=== PATIENT | female | born 1990 | race Caucasian/White ===

== ENCOUNTER 2017-06-07 06:48 | Inpatient (IN) | payer OTHER, SELFPAY | END 2017-06-09 15:30 | disposition home or self-care (01) | DRG 743 | PROVIDERS: Admitting Provider Obstetrics & Gynecology; Family Provider Physical Medicine & Rehabilitation; PCP Physical Medicine & Rehabilitation; Visit Provider Obstetrics & Gynecology | DX: N93.9 Abnormal uterine and vaginal bleeding, unspecified (principal); N73.6 Female pelvic peritoneal adhesions (postinfective); N83.202 Unspecified ovarian cyst, left side; R10.2 Pelvic and perineal pain; Z30.432 Encounter for removal of intrauterine contraceptive device; R33.9 Retention of urine, unspecified | CPT/HCPCS: 36415; 81001; 85025; 88309; 99058; J0131; J0330; J0690; J1100; J1200; J1885; J2250; J2270; J2405; J2704; J2765; J3010; J7121; J8501 ==

== ENCOUNTER 2018-09-13 18:24 | Emergency (ER) | payer OTHER, SELFPAY ==
[2018-09-13 18:34] VITALS: BP 112/64; PULSE 72; RESP 15; TEMP 36.5; O2SAT 97; BMI 21.5
--- NOTE | 2018-09-13 18:41 | ED.ABDPAIN ---
HPI - Abdominal Pain General Chief Complaint: Abdominal Pain Stated Complaint: MIDDLE RIGHT SIDE ABD PAIN NAUSEA Time Seen by Provider: 09/13/18 18:26 Source: patient Mode of arrival: ambulatory Limitations: no limitations History of Present Illness HPI narrative: 28-year-old female here for evaluation of right-sided abdominal pain. Patient states that has been going on for the past several weeks if not month. Was seen at her primary doctor today. Had ?labs ?and a right upper quadrant ultrasound performed. Patient states she was told everything was unremarkable. She comes to the emergency department this evening because she states she now has nausea. States the pain is on her right side. No urinary symptoms. No change in bowel habits. No vaginal bleeding. She has had a hysterectomy in the past and a right-sided ovary removal. States the pain is worse with eating and drinking and then improves to the point where she does not have any symptoms. She is not currently on any reflux medications. Related Data Home Medications Medication Instructions Recorded Confirmed estradiol [Climara] 1 patch TOPICAL QWEEK #0 05/31/17 multivitamin [Multiple Vitamins] 1 tab PO QDAY #0 06/07/17 Previous Rx's Medication Instructions Recorded esomeprazole magnesium [Nexium 20 mg PO DAILY #30 cap 09/13/18 24HR] ondansetron 4 mg PO Q6H PRN #14 tab 09/13/18 Allergies Allergy/AdvReac Type Severity Reaction Status Date / Time No Known Drug Allergies Allergy Verified 09/13/18 18:34 Review of Systems Constitutional Denies fever(s) Cardiovascular Denies chest pain and Denies dyspnea Respiratory Denies dyspnea Gastrointestinal Gastrointestinal: Reports abdominal pain, Denies change in stool character, Reports nausea and Reports vomiting Genitourinary Denies dysuria and Denies vaginal discharge Musculoskeletal Denies myalgias and Denies arthralgias Integumentary/Breasts Denies rash Neurologic Denies behavioral changes Psychiatric Denies behavioral changes Hematologic/Lymphatic Denies easy bleeding and Denies easy bruising [facility] Medical History History of hysterectomy (Acute) Patient denies medical problems (Acute) Social History Smoking Status: Unknown if ever smoked Social History Smoking Status: Unknown if ever smoked Exam Initial Vital Signs Initial Vital Signs: Vital Signs Temperature 97.7 F 09/13/18 18:34 Pulse Rate 72 09/13/18 18:34 Respiratory Rate 15 09/13/18 18:34 Blood Pressure 112/64 09/13/18 18:34 Pulse Oximetry 97 09/13/18 18:34 Const General: cooperative, comfortable, well developed, well groomed and No acute distress Orientation: alert, awake and oriented x3 Resp Effort & Inspection: normal respiratory effort Auscultation: clear to auscultation bilaterally Cardio Rate: regular rate Rhythm: regular rhythm Pulses: radial pulses present GI Inspection: non-distended Palpation: soft, No firm and tender (Right-sided abdominal tenderness) Back/Spine/Pelvis Back: No CVA tenderness Skin Lesions: no lesions Rashes: no rashes Neuro General: alert and awake Cognition: normal cognition Speech: speech normal Extrem General: normal to inspection and capillary refill normal Psych Appearance: grossly normal and well kempt Course Orders Ordered: ED Orders 09/13/18 18:49 CT abdomen pelvis w con Stat 09/13/18 19:11 Complete Blood Count AUTO DIFF Stat Comprehensive Metabolic Panel Stat Lipase Stat 09/13/18 19:30 Urine Microscopic Stat Discontinued Medications Sodium Chloride (Normal Saline 0.9%) 1,000 mls @ 1,000 mls/hr IV BOLUS ONE Stop: 09/13/18 19:47 Last Admin: 09/13/18 19:28 Dose: 1,000 mls/hr Morphine Sulfate (Morphine) 4 mg IV NOW ONE Stop: 09/13/18 18:49 Last Admin: 09/13/18 19:28 Dose: 4 mg Ondansetron HCl (Zofran) 4 mg IV NOW ONE Stop: 09/13/18 18:49 Last Admin: 09/13/18 19:28 Dose: 4 mg Ondansetron HCl (Zofran) 4 mg IV NOW ONE Stop: 09/13/18 20:01 Last Admin: 09/13/18 20:04 Dose: 4 mg Ondansetron HCl (Zofran Odt Prepack) 1 bottle MISC SEEINSTR ONE Stop: 09/13/18 20:41 Vital Signs - 8 hr 09/13/18 18:34 09/13/18 19:42 09/13/18 20:30 Temperature 97.7 F Pulse Rate 72 73 62 Respiratory Rate 15 15 15 Blood Pressure 112/64 Blood Pressure [Left Arm] 107/66 106/63 Pulse Oximetry 97 98 99 MDM - Abdominal Pain Lab Data Attestation: I reviewed the patient's lab results. Result diagrams: 09/13/18 19:11 09/13/18 19:11 Lab Results 09/13/18 09/13/18 09/13/18 Range/Units 19:11 19:11 19:30 WBC 8.4 (4.5-11.0) X10^3/uL RBC 4.24 (4.0-5.2) X10^6/uL Hgb 12.5 (12.0-16.0) g/dL Hct 37.7 (36-46) % MCV 89.0 (80-100) fL MCH 29.6 (26-34) PG MCHC 33.3 (30-36) % RDW 13.0 (11.6-14.8) % Plt Count 310 (150-400) X10^3/uL Neut % (Auto) 52.9 (50-75) % Lymph % (Auto) 32.9 (25-40) % [place] % (Auto) 7.9 (3-14) % Eos % (Auto) 5.2 H (2-4) % Baso % (Auto) 1.1 (0-2) % Neut # (Auto) 4400 (3809-4790) /uL Lymph # (Auto) 2800 (8263-3843) /uL [place] # (Auto) 700 (0-900) /uL Eos # (Auto) 400 (0-450) /uL Baso # (Auto) 100 (0-100) /uL Sodium 140 (137-145) mmol/L Potassium 3.5 (3.4-5.1) mmol/L Chloride 102 (98-107) mmol/L Carbon Dioxide 32 (22-32) mmol/L BUN 19 H (7-17) mg/dL Creatinine 0.70 (0.52-1.04) mg/dL Estimated GFR > 60.0 (>60) mL/min BUN/Creatinine Ratio 27.1 H (6-22) Glucose 73 (70-100) mg/dL Calcium 9.8 (8.4-10.2) mg/dL Total Bilirubin 0.2 (0.2-1.3) mg/dL AST 25 (14-36) IU/L ALT 19 (9-52) IU/L Alkaline Phosphatase 75 (38-126) U/L Total Protein 7.6 (6.3-8.2) g/dL Albumin 4.4 (3.5-5.0) g/dL Globulin 3.2 (1.7-4.1) g/dL Albumin/Globulin Ratio 1.4 (1.0-2.8) Lipase 154 (23-300) U/L Urine RBC 0-1/hpf (0-5/HPF) Urine WBC 0-1/hpf (0-5/HPF) Ur Squamous Epith Cells 0-1 /hpf (0-5/HPF) Amorphous Sediment 1+ Urine Bacteria None seen (None) Ur Culture Indicated? Cult not indicated Point of care testing: Urine Dip Bedside Urine Glucose Negative Bedside Urine Bilirubin - Negative Bedside Urine Ketone - Negative Urine Specific [place] 1.015 Bedside Urine Occult Blood + Bedside Urine pH 7.5 Bedside Urine Protein - Negative Bedside Urine Urobilinogen +/- 1mg Bedside Urine Nitrite - Negative Bedside Urine Leukocytes - Negative Esterase Imaging Data CT scan - abdomen: Radiologist's impression: Teressa Antoineyelena Tejada 28 F 1990 [place] [address] CT Scan Report Signed Patient: Kimberly Antoine [facility]#: [id number] : 1990Acct:[id number] Age/Sex: 28 / FDate of Service: 09/13/18 Loc: ED Accession Number: [id number] Procedure: CT abdomen pelvis w con Ordering Provider: Taras Aragon D.O. PROCEDURE: CT ABDOMEN PELVIS W CON INDICATIONS: RLQ ABD pain TECHNIQUE: After the administration of intravenous contrast, 5 mm thick sections acquired from the diaphragm to the symphysis. 5 mm coronal and sagittal reformats were acquired. For radiation dose reduction, the following was used: automated exposure control, adjustment of mA and/or kV according to patient size. COMPARISON: None. FINDINGS: Image quality: Excellent. ABDOMEN: Lung bases: Lung bases are clear. Heart size is normal. Solid organs: Liver is normal in size and enhancement. Gallbladder is normal. Biliary system is non dilated. Pancreas enhances normally. Spleen is normal in size and enhancement. No adrenal nodules. Kidneys demonstrate normal size and enhancement, without hydronephrosis. Peritoneum and bowel: Appendix is normal. No stranding in the right lower quadrant. Bowel loops demonstrate normal wall thickness and caliber. A moderate amount of swelling colon. No free fluid or air. Nodes and vessels: No retroperitoneal or mesenteric adenopathy by size criteria. Aorta and inferior vena cava are normal in size. Miscellaneous: No ventral hernias. PELVIS: Genitourinary: Bladder wall thickness is normal. Uterus is absent. No adnexal mass. No free pelvic fluid. Miscellaneous: No inguinal hernias or adenopathy. Bones: No suspicious bony lesions. No vertebral body compression fractures. IMPRESSION: 1. Normal appendix. 2. A moderate amount of stool in colon. Dictated by: Leandra Willingham M.D. on 09/13/2018 at 20:14 Approved by: Leandra Willingham M.D. on 09/13/2018 at 20:19 MDM Narrative Medical decision making narrative: Patient with a relatively benign abdominal exam. She reports a normal right upper quadrant ultrasound today. I do not have this report to review of the patient states that was normal. Her CT scan today was unremarkable. No indication for antibiotics. No indication for surgical referral. Since the symptoms do seem to be worsening after eating will start on a PPI to treat for presumed reflux disease. Have her follow up with her primary doctor to discuss referral to see GI. She was given return precautions. She expressed understanding and agreement with plan. Discharge Plan Departure Patient Disposition: Home Clinical Impression: Abdominal pain Qualifiers: Abdominal location: unspecified location Qualified Code(s): R10.9 - Unspecified abdominal pain Instructions: DI for Abdominal Pain-Adult Activity Restrictions/Additional Instructions: Recommend you start taking the medications as directed. Contact your primary provider tomorrow to discuss the indications for referral to see GI. Return to the emergency department for any new symptoms Prescriptions: New ondansetron 4 mg tablet,disintegrating 4 mg PO Q6H PRN (Reason: nausea and vomiting) Qty: 14 RF: 0 esomeprazole magnesium [Nexium 24HR] 20 mg capsule,delayed release(DR/EC) 20 mg PO DAILY Qty: 30 RF: 0 No Action estradiol [Climara] 0.06 MG/24 HR patch weekly 1 patch Topical QWEEK Qty: 0 RF: 0 multivitamin [Multiple Vitamins] 1 EACH tablet 1 tab PO QDAY Qty: 0 RF: 0 Referrals: Katie Bowen MD [Primary Care Provider] - Stand Alone Forms: Work Release Note
--- NOTE | 2018-09-13 18:49 | DI.CT.S_ITS ---
PROCEDURE: CT ABDOMEN PELVIS W CON INDICATIONS: RLQ ABD pain TECHNIQUE: After the administration of intravenous contrast, 5 mm thick sections acquired from the diaphragm to the symphysis. 5 mm coronal and sagittal reformats were acquired. For radiation dose reduction, the following was used: automated exposure control, adjustment of mA and/or kV according to patient size. COMPARISON: None. FINDINGS: Image quality: Excellent. ABDOMEN: Lung bases: Lung bases are clear. Heart size is normal. Solid organs: Liver is normal in size and enhancement. Gallbladder is normal. Biliary system is non dilated. Pancreas enhances normally. Spleen is normal in size and enhancement. No adrenal nodules. Kidneys demonstrate normal size and enhancement, without hydronephrosis. Peritoneum and bowel: Appendix is normal. No stranding in the right lower quadrant. Bowel loops demonstrate normal wall thickness and caliber. A moderate amount of swelling colon. No free fluid or air. Nodes and vessels: No retroperitoneal or mesenteric adenopathy by size criteria. Aorta and inferior vena cava are normal in size. Miscellaneous: No ventral hernias. PELVIS: Genitourinary: Bladder wall thickness is normal. Uterus is absent. No adnexal mass. No free pelvic fluid. Miscellaneous: No inguinal hernias or adenopathy. Bones: No suspicious bony lesions. No vertebral body compression fractures. IMPRESSION: 1. Normal appendix. 2. A moderate amount of stool in colon. Dictated by: Leandra Willingham M.D. on 09/13/2018 at 20:14 Approved by: Leandra Willingham M.D. on 09/13/2018 at 20:19
[2018-09-13 19:25] LABS: Add Manual Diff / Slide Review NO; Basophils Absolute Auto 100 /uL (0-100); Basophils Percent Auto 1.1 % (0-2); Eosinophils Absolute Auto 400 /uL (0-450); Eosinophils Percent Auto 5.2 % (2-4); Hematocrit 37.7 % (36-46); Hemoglobin 12.5 g/dL (12.0-16.0); Lymphocytes Absolute Auto 2800 /uL (1100-4500); Lymphocytes Percent Auto 32.9 % (25-40); Mean Corpuscular HGB Conc 33.3 % (30-36); Mean Corpuscular Hemoglobin 29.6 PG (26-34); Monocytes Absolute Auto 700 /uL (0-900); Monocytes Percent Auto 7.9 % (3-14); Neutrophils Absolute Auto 4400 /uL (1500-7000); Neutrophils Percent Auto 52.9 % (50-75); Platelet Count 310 X10^3/uL (150-400); Red Blood Cell Count 4.24 X10^6/uL (4.0-5.2); White Blood Cell Count 8.4 X10^3/uL (4.5-11.0)
[2018-09-13] MEDS: ONDANSETRON 4 MG/2 ML INJ IV ×2 (19:28→20:04)
[2018-09-13] MEDS: SODIUM CHLORIDE 0.9% 1,000 ML 1000 ML IV (19:28)
[2018-09-13] MEDS: MORPHINE 4 MG/ML INJ IV (19:28)
[2018-09-13 19:37] LABS: Bacteria Urine None Seen
[2018-09-13 19:40] LABS: Alanine Aminotransferase 19 IU/L (9-52); Albumin 4.4 g/dL (3.5-5.0); Albumin Globulin Ratio 1.4 (1.0-2.8); Alkaline Phosphatase 75 U/L (38-126); Aspartate Aminotransferase 25 IU/L (14-36); BUN Creatinine Ratio 27.1 (6-22); Bilirubin Total 0.2 mg/dL (0.2-1.3); Blood Urea Nitrogen 19 mg/dL (7-17); Calcium 9.8 mg/dL (8.4-10.2); Carbon Dioxide 32 mmol/L (22-32); Chloride 102 mmol/L (98-107); Estimated Glomerular Filt Rate > 60.0 mL/min (>60); Globulin 3.2 g/dL (1.7-4.1); Glucose 73 mg/dL (70-100); HEMOLYSIS < 15 (0-50); Lipase 154 U/L (23-300); Potassium 3.5 mmol/L (3.4-5.1); Sodium 140 mmol/L (137-145); Total Protein 7.6 g/dL (6.3-8.2)
[2018-09-13 19:42] VITALS: BP 107/66; PULSE 73; RESP 15; O2SAT 98
[2018-09-13 19:52] LABS: Amorphous Sediment Urine 1+; Culture Indicated Urine Cult Not Indicated; RBC Urine 0-1/HPF (0-5/HPF); Squamous Epithelial Cell Urine 0-1 /HPF (0-5/HPF); WBC Urine 0-1/HPF (0-5/HPF)
[2018-09-13 20:30] VITALS: BP 106/63; PULSE 62; RESP 15; O2SAT 99
[2018-09-13] MEDS: ONDANSETRON 4 MG ODT PREPACK 1 BOTTLE MISC (21:03)
== END 2018-09-13 21:09 | disposition home or self-care (01) ==
PROVIDERS: Emergency Provider Emergency Medicine; Family Provider Physical Medicine & Rehabilitation; PCP Physical Medicine & Rehabilitation
DX: R10.9 Unspecified abdominal pain (principal)
CPT/HCPCS: 36591; 74177; 80053; 81003; 81015; 83690; 85025; 96361; 96374; 96375; 96376; 99283; 99284; J2270; J2405; Q9967

== ENCOUNTER 2018-12-02 12:57 | Emergency (ER) | payer OTHER, SELFPAY ==
[2018-12-02 13:16] VITALS: BP 109/72; PULSE 74; RESP 18; TEMP 36.5; O2SAT 100; BMI 22.2
--- NOTE | 2018-12-02 14:17 | ED_ITS ---
HPI - Wound/Laceration <PRINCESS Cunningham - Last Filed: 12/02/18 15:15> General Chief Complaint: Wound/Laceration Stated Complaint: Laceration of R wrist Time Seen by Provider: 12/02/18 13:51 Source: patient Mode of arrival: Ambulatory Limitations: no limitations History of Present Illness HPI narrative: This is a 28-year-old female, prior smoker, presents to ED by EMS with laceration on volar aspect of right wrist. 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 She is right dominant hand. Tetanus vaccination is up-to-date as of 3 years ago. No active bleeding at this time. Patient is able to flex and extend the right wrist without difficulty. Related Data Home Medications Medication Instructions Recorded Confirmed estradiol [Climara] 1 patch TOPICAL QWEEK #0 05/31/17 multivitamin [Multiple Vitamins] 1 tab PO QDAY #0 06/07/17 Previous Rx's Medication Instructions Recorded esomeprazole magnesium [Nexium 20 mg PO DAILY #30 cap 09/13/18 24HR] ondansetron 4 mg PO Q6H PRN #14 tab 09/13/18 Allergies Allergy/AdvReac Type Severity Reaction Status Date / Time No Known Drug Allergies Allergy Verified 12/02/18 13:19 Review of Systems <PRINCESS Cunningham - Last Filed: 12/02/18 15:15> Review of Systems ROS Unobtainable: All systems reviewed & are unremarkable except as noted in HPI and below Patient History <PRINCESS Cunningham - Last Filed: 12/02/18 15:15> Medical History Patient denies medical problems (Acute) Surgical History History of hysterectomy (Acute) Social History Smoking Status: Former smoker Social History Smoking Status: Former smoker alcohol intake frequency: holidays/special occasions only Substance Use Type: does not use Exam <Amari Méndez WHEEL LOADER OPERATOR - Last Filed: 12/02/18 15:15> Narrative Exam Narrative: General appearance: well developed, well nourished, in no acute distress. Head: normocephalic, atraumatic, no scalp lesions, non-tender. Eye: pupil equal, round. EOMI. Nose: nares patent. Oral: mucosa moist. Neck/Thyroid: neck supple, full range of motion, no visible masses. Skin: Transverse crossing the wrist laceration on volar aspect of right wrist about 3cm. no suspicious rashes, lesions over visible areas. Warm and dry. Heart: no clubbing, no cyanosis, no edema. Lungs: Breathing even and unlabored. No stridor. No accessory muscles used. Chest: normal shape and expansion. Abdomen: non-obese, non-distended. Neurologic: alert and oriented. Cognitive exam, OPERATING ROOM NURSE and PNS grossly intact on informal exam. Psych: good eye contact, normal affect. Initial Vital Signs Initial Vital Signs: Vital Signs Temperature 97.7 F 12/02/18 13:16 Pulse Rate 74 12/02/18 13:16 Respiratory Rate 18 12/02/18 13:16 Blood Pressure 109/72 12/02/18 13:16 Pulse Oximetry 100 12/02/18 13:16 <Aleta Childs DO - Last Filed: 12/03/18 07:54> Initial Vital Signs Initial Vital Signs: Vital Signs Temperature 97.7 F 12/02/18 13:16 Pulse Rate 74 12/02/18 13:16 Respiratory Rate 18 12/02/18 13:16 Blood Pressure 109/72 12/02/18 13:16 Pulse Oximetry 100 12/02/18 13:16 Procedures <Amari VarmaRodolfoGayla [facility] - Last Filed: 12/02/18 15:15> Laceration Repair Laceration 1: Site: upper extremity (Inner wrist) Side (If applicable): right (Volar) Size (cm): 3 Description: linear Depth: simple, single layer Local Anesthetic: lidocaine 1% and with bicarb Amount of anesthesia used (mL): 2 Pre-repair: wound explored and irrigated extensively Skin layer closed with: nylon Size (cm): 5-0 Number of sutures: 5 Technique: simple, interrupted Scores <PEYMAN CunninghamP - Last Filed: 12/02/18 15:15> GCS [place] coma scale eye opening: Spontaneous [place] coma scale verbal response: Orientated [place] coma scale motor response: Obey commands [place] coma scale total score: 15 Course <PRINCESS Cunningham - Last Filed: 12/02/18 15:15> Orders Ordered: Discontinued Medications Bacitracin (Bacitracin) 1 applic TOP NOW ONE Stop: 12/02/18 14:16 Last Admin: 12/02/18 18:20 Dose: Not Given Documented by: NAKIA Lidocaine/Sodium Bicarbonate (Buffered Lidocaine 10 Ml Syr) 10 ml INJ NOW ONE Stop: 12/02/18 14:16 Last Admin: 12/02/18 18:21 Dose: Not Given Documented by: NAKIA Vital Signs Vital signs: Vital Signs - 8 hr 12/02/18 13:16 12/02/18 14:55 Temperature 97.7 F Pulse Rate 74 64 Respiratory Rate 18 16 Blood Pressure 109/72 Blood Pressure [Left Arm] 121/67 Pulse Oximetry 100 100 <Aleta Childs DO - Last Filed: 12/03/18 07:54> Orders Ordered: Discontinued Medications Bacitracin (Bacitracin) 1 applic TOP NOW ONE Stop: 12/02/18 14:16 Last Admin: 12/02/18 18:20 Dose: Not Given Documented by: NAKIA Lidocaine/Sodium Bicarbonate (Buffered Lidocaine 10 Ml Syr) 10 ml INJ NOW ONE Stop: 12/02/18 14:16 Last Admin: 12/02/18 18:21 Dose: Not Given Documented by: NAKIA Vital Signs Vital signs: Vital Signs - 8 hr 12/02/18 13:16 12/02/18 14:55 Temperature 97.7 F Pulse Rate 74 64 Respiratory Rate 18 16 Blood Pressure 109/72 Blood Pressure [Left Arm] 121/67 Pulse Oximetry 100 100 MDM - Wound/Laceration <PRINCESS Cunningham - Last Filed: 12/02/18 15:15> Differential Diagnosis Differential diagnosis: Likely laceration Medical Records Attestation: I reviewed the patient's medical records. 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 She is able to flex and extend right wrist without difficulty. Patient reports very least unlikely to have foreign body on affected site. Tetanus immunization was updated 3 years ago. Please see procedure note for the laceration repair. Return precautions and wound care at home were discussed with the patient and patient verbalized understanding and agrees with the treatment plan. Discharge Plan Departure Patient Disposition: Home Clinical Impression: Laceration of wrist Qualifiers: Encounter type: initial encounter Laterality: right Qualified Code(s): S61.511A - Laceration without foreign body of right wrist, initial encounter Discharge Date/Time: 12/02/18 15:01 Instructions: DI for Laceration Repair Activity Restrictions/Additional Instructions: You have been diagnosed with [laceration on right inner wrist about 3 cm]. What to do: *Take your medications as directed. You can take [id number] Tylenol and or Motrin as needed for discomfort. Please do not get your wound soaked in the water until suture removal. Keep your dressing intact for next 24 hrs. After then, you could remove your dressing, wash with soap and water. Pat dry with clean paper towel and dress it with antibiotic ointment. You can change dressing as needed and daily. Please monitor for signs and symptoms for infection such as increasing redness, swelling, warmth, pain, fever, purulent discharge. If this occurs, please r eturn to ED or follow up with your primary care physician since your wound may be gotten infected. Please follow up with your primary care provider in 2-3 days for recheck wound. Your suture should be removed [ 7-10 ] days. This can be done by your primary provider, walk-in clinic or here in ED. Please keep your wound clean, dry and intact all times. Prescriptions: No Action estradiol [Climara] 0.06 MG/24 HR patch weekly 1 patch Topical QWEEK Qty: 0 RF: 0 multivitamin [Multiple Vitamins] 1 EACH tablet 1 tab PO QDAY Qty: 0 RF: 0 ondansetron 4 mg tablet,disintegrating 4 mg PO Q6H PRN (Reason: nausea and vomiting) Qty: 14 RF: 0 esomeprazole magnesium [Nexium 24HR] 20 mg capsule,delayed release(DR/EC) 20 mg PO DAILY Qty: 30 RF: 0 Referrals: Keesha Stinson ARNP [Primary Care Provider] - Stand Alone Forms: Work Release Note
[2018-12-02 14:55] VITALS: BP 121/67; PULSE 64; RESP 16; O2SAT 100
== END 2018-12-02 15:01 | disposition home or self-care (01) ==
PROVIDERS: Emergency Provider Nurse Practitioner Family; Family Provider Physical Medicine & Rehabilitation; PCP Nurse Practitioner Family
DX: S61.511A Laceration without foreign body of right wrist, initial encounter (principal); W26.8XXA Contact with other sharp object(s), not elsewhere classified, initial encounter; Y99.0 Civilian activity done for income or pay
CPT/HCPCS: 12002; 99283

== ENCOUNTER 2019-03-15 07:57 | Emergency (ER) | payer OTHER, SELFPAY ==
[2019-03-15 08:24] VITALS: BP 85/69; PULSE 60; RESP 16; TEMP 36.6; O2SAT 99
--- NOTE | 2019-03-15 08:27 | DI.RAD.S_ITS ---
PROCEDURE: XR ACUTE ABDOMEN SERIES INDICATIONS: constipation , minimal BM in 3 days TECHNIQUE: One view chest and two views of the abdomen were acquired. COMPARISON: [facility], CT, CT ABDOMEN PELVIS W CON, 09/13/2018, 19:43. FINDINGS: Surgical changes and devices: None. Chest: Lungs are clear. Heart size is normal. No pleural effusions. No pneumoperitoneum. Abdomen: Bowel gas pattern is nonobstructive. No transition point identified. Diffuse moderate stool noted. No suspicious calcifications. Visualized solid organ contours appear normal. Bones: No suspicious bony lesions. IMPRESSION: No specific evidence of bowel obstruction seen at this time although if the patient's symptoms do not improve, continued surveillance with abdominal series radiographs could be performed. Moderate amount of diffuse stool raising the possibility of fecal retention Clear lungs Dictated by: Avery Shelton M.D. on 03/15/2019 at 9:14 Approved by: Avery Shelton M.D. on 03/15/2019 at 9:16
--- NOTE | 2019-03-15 08:30 | ED.ABDPAIN ---
HPI - Abdominal Pain General Chief Complaint: Abdominal Pain Stated Complaint: sharp stomach pains left abdominal pain get worse Time Seen by Provider: 03/15/19 08:18 Source: patient Mode of arrival: Ambulatory Limitations: no limitations History of Present Illness HPI narrative: The patient is a 28-year-old female who participates in [employer] and falls all the time. She is primarily presenting with sharp stomach pain in the left upper quadrant. She has had constipation before and states that she has not had a good bowel movement in the last 3 days prior to admission. In the past when she has had constipation she has been prescribed MiraLax. She has not taken any during the last 3 days. She denies any melena hematochezia. The patient states that she had a right ovarian cystectomy in the past and then at the age of 27 had a total abdominal hysterectomy home. She denies any known fall or injury causing abdominal pain and discomfort other than the fall she sustained several [place]. She has had no kidney stones she has had brief period of mild dysuria no pyuria. She has chronic back pain. She admits to history of pancreatitis in the past x2 but has had no gallbladder problems or gallstones. She denies any fever chills or sweats. She has had no sore throat difficulty in breathing. No significant cough chest pain palpitations or dizziness. She has had the abdominal pain as described with nausea but no vomiting melena hematochezia. She has had no urinary symptoms otherwise. Related Data Home Medications Medication Instructions Recorded Confirmed estradiol [Climara] 1 patch TOPICAL QWEEK #0 05/31/17 multivitamin [Multiple Vitamins] 1 tab PO QDAY #0 06/07/17 Previous Rx's Medication Instructions Recorded esomeprazole magnesium [Nexium 20 mg PO DAILY #30 cap 09/13/18 24HR] ondansetron 4 mg PO Q6H PRN #14 tab 09/13/18 dicyclomine 20 mg PO TID #14 tab 03/15/19 ibuprofen 600 mg PO QID PRN #20 tab 03/15/19 ondansetron HCl [Zofran] 4 mg PO Q6H PRN #10 tab 03/15/19 Allergies Allergy/AdvReac Type Severity Reaction Status Date / Time No Known Drug Allergies Allergy Verified 12/02/18 13:19 Review of Systems Review of Systems ROS Unobtainable: All systems reviewed & are unremarkable except as noted in HPI and below Patient History Medical History Patient denies medical problems (Acute) Surgical History History of hysterectomy (Acute) Social History Smoking Status: Current every day smoker Smoking Status: Current every day smoker alcohol intake frequency: holidays/special occasions only Substance Use Type: does not use Exam Narrative Exam Narrative: PHYSICAL EXAM: CONSTITUTIONAL: Awake, Alert, Oriented, Coherent, Cooperative in mild to moderate distress appears uncomfortable with grimacing. HEAD: AT/NC EENT: PERRL, FROM of eyes, no discharge, no nystagmus No epistaxis or nasal drainage Oral mucosa is moist and pink, posterior pharynx is without erythema or exudate. NECK: Supple, no obvious JVD, Trachea is midline without stridor, no palpable LN or masses. SPINE: No gross deformity, no palpable tenderness of the cervical, thoracic, lumbar or sacral spine. Mild left costovertebral angle tenderness and mild tenderness to palpation over the left SI joint. THORAX: No deformity, retractions, chest wall tenderness, subcutaneous air or crepitice. LUNGS: Clear with symmetrical breath sounds without respiratory distress HEART: Normal heart tones, regular rhythm and rate without murmur. ABDOMEN: Soft tender in the left upper quadrant and left lower quadrant without guarding rebound or rigidity. The patient grimaces with palpation. Bowel sounds are present. No palpable organomegaly or mass. EXTREMITIES: No edema, cyanosis, deformity or tenderness. SKIN: No rash, bruising, petechiae or purpura. NEURO: Awake, alert, oriented, conversive, cranial nerves II-XII are symmetrical and normal, moves all 4 extremities and is ambulatory Initial Vital Signs Initial Vital Signs: Vital Signs Temperature 97.9 F 03/15/19 08:24 Pulse Rate 60 03/15/19 08:24 Respiratory Rate 16 03/15/19 08:24 Blood Pressure 85/69 L 03/15/19 08:24 Pulse Oximetry 99 03/15/19 08:24 Course Course Course Narrative: 1010 the patient is on x-rays reveal that the patient is constipated and has fecal retention according to the radiologist. There is no evidence of free air or bowel obstruction there is no obstructive gas pattern. The patient's chemistries are negative. Orders Ordered: Discontinued Medications Dicyclomine HCl (Bentyl) 20 mg PO NOW ONE Stop: 03/15/19 08:28 Last Admin: 03/15/19 09:10 Dose: 20 mg Documented by: MARLENE Sodium Chloride (Normal Saline 0.9%) 1,000 mls @ 150 mls/hr IV CONT DENILSON Last Infusion: 03/15/19 10:48 Dose: 0 mls/hr Documented by: Admin: 03/15/19 08:38 Dose: 150 mls/hr Documented by: SETH Ketorolac Tromethamine (Toradol) 30 mg IV NOW ONE Stop: 03/15/19 08:28 Last Admin: 03/15/19 08:37 Dose: 30 mg Documented by: SETH Ondansetron HCl (Zofran) 4 mg IV NOW ONE Stop: 03/15/19 08:28 Last Admin: 03/15/19 08:37 Dose: 4 mg Documented by: SETH Vital Signs Vital signs: Vital Signs - 8 hr 03/15/19 08:24 Temperature 97.9 F Pulse Rate 60 Respiratory Rate 16 Blood Pressure 85/69 L Pulse Oximetry 99 MDM - Abdominal Pain Lab Data Result diagrams: 03/15/19 08:20 03/15/19 08:20 Labs: Lab Results 03/15/19 03/15/19 03/15/19 Range/Units 08:20 08:20 08:49 WBC 6.9 (4.5-11.0) X10^3/uL RBC 4.17 (4.0-5.2) X10^6/uL Hgb 12.8 (12.0-16.0) g/dL Hct 37.7 (36-46) % MCV 90.4 (80-100) fL MCH 30.7 (26-34) PG MCHC 34.0 (30-36) % RDW 13.0 (11.6-14.8) % Plt Count 285 (150-400) X10^3/uL Neut % (Auto) 53.1 (50-75) % Lymph % (Auto) 29.2 (25-40) % Dolores % (Auto) 7.5 (3-14) % Eos % (Auto) 9.2 H (2-4) % Baso % (Auto) 1.0 (0-2) % Neut # (Auto) 3700 (2719-5541) /uL Lymph # (Auto) 2000 (4445-7513) /uL Dolores # (Auto) 500 (0-900) /uL Eos # (Auto) 600 H (0-450) /uL Baso # (Auto) 100 (0-100) /uL Sodium 141 (137-145) mmol/L Potassium 4.1 (3.4-5.1) mmol/L Chloride 105 (98-107) mmol/L Carbon Dioxide 27 (22-32) mmol/L BUN 10 (7-17) mg/dL Creatinine 0.60 (0.52-1.04) mg/dL Estimated GFR > 60.0 (>60) mL/min BUN/Creatinine Ratio 16.7 (6-22) Glucose 93 (70-100) mg/dL Calcium 9.8 (8.4-10.2) mg/dL Total Bilirubin 0.5 (0.2-1.3) mg/dL AST 25 (14-36) IU/L ALT 17 (<35) IU/L Alkaline Phosphatase 69 (38-126) U/L Total Protein 7.5 (6.3-8.2) g/dL Albumin 4.4 (3.5-5.0) g/dL Globulin 3.1 (1.7-4.1) g/dL Albumin/Globulin Ratio 1.4 (1.0-2.8) Lipase 33 (23-300) U/L Urine RBC 0-1/hpf (0-5/HPF) Urine WBC None seen (0-5/HPF) Ur Squamous Epith Cells 0-1 /hpf (0-5/HPF) Urine Bacteria None seen (None) Ur Culture Indicated? Cult not indicated Point of care testing: Urine Dip Bedside Urine Glucose Negative Bedside Urine Bilirubin - Negative Urine Specific Bernice 1.010 Bedside Urine Occult Blood +/- Bedside Urine pH 8.0 Bedside Urine Protein - Negative Bedside Urine Urobilinogen - Negative Bedside Urine Nitrite - Negative Bedside Urine Leukocytes - Negative Esterase Discharge Plan Departure Patient Disposition: Home Clinical Impression: Abdominal cramping Constipation Qualifiers: Constipation type: unspecified constipation type Qualified Code(s): K59.00 - Constipation, unspecified Nausea & vomiting Qualifiers: Vomiting type: unspecified Vomiting Intractability: non-intractable Qualified Code(s): R11.2 - Nausea with vomiting, unspecified Discharge Date/Time: 03/15/19 10:51 Instructions: DI for Abdominal Pain-Adult, DI for Constipation, Nausea and Vomiting-Adult Activity Restrictions/Additional Instructions: When you get home you can obtain a Fleet's oil retention enema and take 1-2 enemas and see if that help you with her constipation. The other thing to do is to buy the medium bottle of MiraLax 238 g and mix it in a 64 oz bottle of Gatorade, chill it and then drink an 8 oz glass every 30 minutes until you start having a good bowel movement in clean yourself out. After 2 days you can use MiraLax 1 packet or a tsp on a daily basis with your meals for 10 days to keep herself having soft stools without constipation. If you develop worsening pain or fever with persistent nausea and vomiting you need to return to the emergency department and or follow-up with your primary care physician. Prescriptions: New ibuprofen 600 mg tablet 600 mg PO QID PRN (Reason: pain) Qty: 20 RF: 0 ondansetron HCl [Zofran] 4 mg tablet 4 mg PO Q6H PRN (Reason: nausea and vomiting) Qty: 10 RF: 0 dicyclomine 20 mg tablet 20 mg PO TID Qty: 14 RF: 0 No Action estradiol [Climara] 0.06 MG/24 HR patch weekly 1 patch Topical QWEEK Qty: 0 RF: 0 multivitamin [Multiple Vitamins] 1 EACH tablet 1 tab PO QDAY Qty: 0 RF: 0 ondansetron 4 mg tablet,disintegrating 4 mg PO Q6H PRN (Reason: nausea and vomiting) Qty: 14 RF: 0 esomeprazole magnesium [Nexium 24HR] 20 mg capsule,delayed release(DR/EC) 20 mg PO DAILY Qty: 30 RF: 0 Referrals: Keesha Stinson ARNP [Primary Care Provider] -
[2019-03-15 08:34] LABS: Add Manual Diff / Slide Review NO; Basophils Absolute Auto 100 /uL (0-100); Eosinophils Absolute Auto 600 /uL (0-450); Eosinophils Percent Auto 9.2 % (2-4); Hematocrit 37.7 % (36-46); Hemoglobin 12.8 g/dL (12.0-16.0); Lymphocytes Absolute Auto 2000 /uL (1100-4500); Lymphocytes Percent Auto 29.2 % (25-40); Mean Corpuscular Hemoglobin 30.7 PG (26-34); Mean Corpuscular Volume 90.4 fL (80-100); Monocytes Absolute Auto 500 /uL (0-900); Monocytes Percent Auto 7.5 % (3-14); Neutrophils Absolute Auto 3700 /uL (1500-7000); Neutrophils Percent Auto 53.1 % (50-75); Platelet Count 285 X10^3/uL (150-400); Red Blood Cell Count 4.17 X10^6/uL (4.0-5.2); White Blood Cell Count 6.9 X10^3/uL (4.5-11.0)
[2019-03-15] MEDS: KETOROLAC 60 MG/2 ML VIAL 30 MG IV (08:37)
[2019-03-15] MEDS: ONDANSETRON 4 MG/2 ML INJ IV (08:37)
[2019-03-15] MEDS: SODIUM CHLORIDE 0.9% 1,000 ML 150 ML IV (08:38)
[2019-03-15 08:41] LABS: Alanine Aminotransferase 17 IU/L (<35); Albumin 4.4 g/dL (3.5-5.0); Albumin Globulin Ratio 1.4 (1.0-2.8); Alkaline Phosphatase 69 U/L (38-126); Aspartate Aminotransferase 25 IU/L (14-36); BUN Creatinine Ratio 16.7 (6-22); Bilirubin Total 0.5 mg/dL (0.2-1.3); Blood Urea Nitrogen 10 mg/dL (7-17); Calcium 9.8 mg/dL (8.4-10.2); Carbon Dioxide 27 mmol/L (22-32); Chloride 105 mmol/L (98-107); Estimated Glomerular Filt Rate > 60.0 mL/min (>60); Globulin 3.1 g/dL (1.7-4.1); Glucose 93 mg/dL (70-100); HEMOLYSIS < 15 (0-50); Lipase 33 U/L (23-300); Potassium 4.1 mmol/L (3.4-5.1); Sodium 141 mmol/L (137-145); Total Protein 7.5 g/dL (6.3-8.2)
[2019-03-15 08:53] LABS: Bacteria Urine None Seen; WBC Urine None Seen (0-5/HPF)
[2019-03-15 09:08] LABS: Culture Indicated Urine Cult Not Indicated; RBC Urine 0-1/HPF (0-5/HPF); Squamous Epithelial Cell Urine 0-1 /HPF (0-5/HPF)
[2019-03-15] MEDS: DICYCLOMINE 10 MG CAPSULE 20 MG PO (09:10)
[2019-03-15 10:33] VITALS: BP 99/66; PULSE 48; RESP 14; O2SAT 99
== END 2019-03-15 10:51 | disposition home or self-care (01) ==
PROVIDERS: Emergency Provider Emergency Medicine; PCP Nurse Practitioner Family
DX: R10.9 Unspecified abdominal pain (principal); K59.00 Constipation, unspecified; R11.2 Nausea with vomiting, unspecified
CPT/HCPCS: 36415; 74022; 80053; 81003; 81015; 83690; 85025; 96361; 96374; 96375; 99284; J1885; J2405